=== PATIENT | female | born 1980 | race Caucasian/White ===

== ENCOUNTER 2020-07-20 05:32 | Outpatient (CLI) | payer BC ==
[~2020-07-20] VITALS: Ht 171 cm; Wt 62.7 kg
[~2020-07-20 05:32] MED LIST: ACHD5005 PO; FERR-57 PO; IRON1TAB94 PO; PREN1TAB14 PO
[2020-07-20] MEDS ORDERED: NF-NORETH5 PO (13:36)
[2020-07-25] MEDS ORDERED: ACET-93 PO (09:13)
[2020-07-25] MEDS ORDERED: OXC5T PO (09:13)
== END 2020-07-20 13:49 | disposition home or self-care (01) ==
LOC: PREOP 05:32
PROVIDERS: ATTEND Obstetrics & Gynecology
DX: Z01.818 Encounter for other preprocedural examination (principal)

== ENCOUNTER 2020-07-25 06:16 | Day surgery (SDC) | payer BC ==
[~2020-07-25] VITALS: Ht 171 cm; Wt 62.7 kg
[2020-07-25] VITALS (11 sets, daily range): BP systolic 120–142; BP diastolic 76–89
[~2020-07-25 06:16] MED LIST changes: +NF-NORETH5 PO
[2020-07-25] MEDS ORDERED: LACTATED RINGERS 1,000 ML IV PRN (06:30)
[2020-07-25] MEDS ORDERED: ceFAZolin INJECTION 1,000 MG in WATER (STERILE) FOR INJECTION 10 ML IV ONE (06:30)
[2020-07-25] MEDS ORDERED: fentaNYL INJ 100 MCG/2 ML AMP ONE (07:31)
[2020-07-25] MEDS ORDERED: MIDAZOLAM 2 MG/2 ML (VERSED) VIAL ONE (07:31)
--- NOTE | 2020-07-25 08:21 | Progress Note-Pre Operative ---
Pre-Operative Progress Note H&P Reviewed The H&P was reviewed, patient examined and no changes noted. Date Seen by Provider: Jul 25, 2020 Time Seen by Provider: 08:00 Date H&P Reviewed: Jul 25, 2020 Time H&P Reviewed: 08:00 Pre-Operative Diagnosis: memorrhagia AMANDA ALBERT DO Jul 25, 2020 08:20
--- NOTE | 2020-07-25 09:02 | Operative Report ---
Operative Report Date of Procedure/Surgery Jul 25, 2020 Surgeon (s) AMANDA ALBERT DO Combination Building Inspector (s): NA Post-Operative Diagnosis menorrhagia Procedure Performed hysteroscopy, dilation and curettage, Tari endometrial ablation Description of Procedure Anesthesia Type: General Estimated blood loss (mL): minimal Specimen(s) collected/removed endometrial curettings Description of the Procedure With informed consent the patient was taken to the operating room where general anesthesia was found to be adequate. She was then prepped and draped in the usual sterile fashion in the dorsolithotomy position. The bladder was then drained with a straight cath of clear, yellow urine. A speculum was then placed in the vagina and the cervix was grasped with the tenaculum and the uterus was gently sounded to a length of 6 + cm (the cervix was 4 cm in length). The cervix was gently dilated with Sly dilators to allow insertion of the hysteroscope. There was blood in the cavity and proliferative endometrium was noted. I then did a gentle curettage and sent the curettings for pathology. At this point the Tari device was inserted and appropriate placement was confirmed. Once the compliance test was passed and completed the device was enabled and the ablation was done for the requisite 120 seconds. The device was then removed and follow up hysteroscope was done revealing an ablated endometrium. The instruments were removed from the cervix and vagina and there was good hemostasis noted. The patient was awakened and taken to the recovery room in stable condition. Sponge, lap, needle and instrument counts were correct times two. Findings of the Procedure thickened proliferative endometrium blood in the uterine cavity Allergies and Home Medications Allergies Coded Allergies: Penicillins (Verified Allergy, Mild, ABLE TO TAKE CEPHALOSPORINS, 07/25/20) PER DR. ALBERT'S ORDER PT ABLE TO TAKE CEPHALOSPORINS ibuprofen (Verified Allergy, Unknown, RASH, 07/25/20) Home Medications Acetaminophen 500 Mg Tablet, 1,000 MG PO Q8H PRN for PAIN-MILD (1-4) Prescribed by: AMANDA ALBERT on 07/25/20912 Oxycodone Hcl 5 Mg Tab, 5 MG PO Q6H PRN for PAIN-SEVERE (8-10) Prescribed by: AMANDA ALBERT on 07/25/20912 Patient Home Medication List Home Medication List Reviewed: Yes AMANDA ALBERT DO Jul 25, 2020 09:02
--- NOTE | 2020-07-25 09:05 | Discharge Inst-Women's Service ---
Discharge Inst-Women's Serv Depart Medication/Instructions New, Converted or Re-Newed RX: RX on Chart Final Diagnosis menorrahagia Problems Reviewed?: Yes Consults/Follow Up Additional Follow Up: Yes Activity Activity: Activity as Tolerated Driving Instructions: No Driving for 24 Hours NO SMOKING: NO SMOKING Nothing Inside Vagina: No Douching, No Rena Lara, No Tampons Diet Discharge Diet: No Restrictions Symptoms to Report to : Bleeding Excessive, Pain Increased, Fever Over 101 Degrees F, Vaginal Bleeding Increase, Vaginal Discharge Foul expect to have spotting and light bleeding for up to 2 weeks For Any Problems or Questions: Contact Your Physician AMANDA ALBERT DO Jul 25, 2020 09:05
[2020-07-25] MEDS ORDERED: proPOfol 200 MG/20 ML (DIPRIVAN) VIAL IV ONE (09:12)
[2020-07-25] MEDS ORDERED: ONDANSETRON 4 MG/2 ML (SDV) Z0FRAN ONE (09:12)
[2020-07-25] MEDS ORDERED: SEVOFLURANE (ULTANE) 15 ML INHAL SOLN ONE (09:12)
[2020-07-25] MEDS ORDERED: LIDOCAINE PF 2% 5 ML (XYLOCAINE) VIAL ONE (09:12)
[2020-07-25] MEDS ORDERED: ACET-93 PO (09:13)
[2020-07-25] MEDS ORDERED: OXC5T PO (09:13)
[2020-07-25] MEDS ORDERED: ACETAMINOPHEN 500 MG TAB (TYLENOL) PO PRN (09:15)
[2020-07-25] MEDS ORDERED: ACETAMINOPHEN 500 MG TAB (TYLENOL) ONE (10:01)
--- NOTE | 2020-07-25 10:19 | Anesthesia-General Post-Op ---
General Patient Condition Mental Status/LOC: Same as Preop Cardiovascular: Satisfactory Nausea/Vomiting: Absent Respiratory: Satisfactory Pain: Controlled Complications: Absent Post Op Complications Complications None Follow Up Care/Instructions Patient Instructions None needed. Anesthesia/Patient Condition Patient Condition Patient is doing well, no complaints, stable vital signs, no apparent adverse anesthesia problems. No complications reported per nursing. REG DEVINE CRNA Jul 25, 2020 10:19
== END 2020-07-25 11:05 | disposition home or self-care (01) ==
LOC: SDC 06:16
PROVIDERS: ATTEND Obstetrics & Gynecology
DX: N92.0 Excessive and frequent menstruation with regular cycle (principal); N93.9 Abnormal uterine and vaginal bleeding, unspecified; R77.8 Other specified abnormalities of plasma proteins; Z88.0 Allergy status to penicillin; Z88.6 Allergy status to analgesic agent; Z79.891 Long term (current) use of opiate analgesic; Z79.899 Other long term (current) drug therapy; Z98.51 Tubal ligation status
CPT/HCPCS: 84703; 87081; 88305